=== PATIENT | male | born 1950 | race Caucasian/White ===

== ENCOUNTER 2025-05-12 14:10 | Observation (INO) | payer MEDICARE, BC ==
[~2025-05-12] VITALS: Ht 177.8 cm; Wt 132.8 kg
[2025-05-12] MEDS: KETOROLAC 30 MG/ML 1 ML VIAL IV ONE (17:39)
[2025-05-12 17:49] LABS: KETONE, URINE AUTO RFX NEGATIVE (NEGATIVE); LEUKOCYTE ESTERASE UR AUTO RFX NEGATIVE (NEGATIVE); NITRITE, URINE AUTO RFX NEGATIVE (NEGATIVE); RBC, URINE AUTO RFX 1 /HPF (0-3); SQUAM EPITHELIAL CELL UR AURFX 0 /HPF (0-6); WBC, URINE AUTO RFX 0 /HPF (0-3)
[2025-05-12 17:50] LABS: BASO # 0.0 10^3/uL (0.0-0.2); BASO % 0.5 % (0.0-1.0); EOS # 0.1 10^3/uL (0.0-0.5); EOS % 1.0 % (0.0-3.0); LYMPH # 1.9 10^3/uL (1.5-5.0); LYMPH % 22.1 % (24.0-44.0); MONO # 0.8 10^3/uL (0.0-0.8); MONO % 9.0 % (2.0-8.0); NEUTROPHILS # 5.8 10^3/uL (1.5-8.5); NEUTROPHILS % 67.1 % (36.0-66.0); PLATELET COUNT, AUTOMATED 261 10^3/uL (150-450)
[2025-05-12] MEDS: cefTRIAXone SOD 2 GM in DEXTROSE 5% (D5W) ADV/MINI-BAG 50 ML IV ONE (18:58)
[2025-05-12] MEDS: NS (Normal Saline) 0.9% 1,000 ML IV SCH (18:58)
[2025-05-12 19:31] LABS: CALCIUM LEVEL 9.0 MG/DL (8.3-10.6); CARBON DIOXIDE LEVEL 25.0 MMOL/L (20-31); CHLORIDE LEVEL 107.0 MMOL/L (98-107); CREATININE FOR GFR 0.98 MG/DL (0.70-1.30); GLOMERULAR FILTRATION RATE 80.4 (>42); POTASSIUM SERUM 4.5 MMOL/L (3.5-5.1); SODIUM LEVEL 142.0 MMOL/L (136-145)
[2025-05-12 20:08] LABS: INR 1.0
[2025-05-12] MEDS ORDERED: TAMS1CAP17 PO (20:39)
[2025-05-12] MEDS ORDERED: LISI20TA35 PO (20:39)
[2025-05-12] MEDS ORDERED: HYDR-4571 PO (20:39)
[2025-05-12] MEDS ORDERED: METH-1165 PO (20:39)
[2025-05-12] MEDS ORDERED: SIMV10TA21 PO (20:39)
[2025-05-12] MEDS ORDERED: ONDA-282 PO (20:39)
[2025-05-12] MEDS ORDERED: HOME MED LIST COMPLETE! XX SCH (20:45)
[2025-05-12] MEDS: SIMVASTATIN 10 MG TAB PO SCH (22:35)
[2025-05-12] MEDS: KETOROLAC 30 MG/ML 1 ML VIAL IV PRN (23:19)
[2025-05-13 04:03] VITALS: BP 155/84; TEMP 97.1; O2SAT 96
[2025-05-13 05:58] LABS: PLATELET COUNT, AUTOMATED 218 10^3/uL (150-450)
[2025-05-13 06:20] LABS: ALT/SGPT 29.0 U/L (7.0-40); AST/SGOT 29.0 U/L (<34); CALCIUM LEVEL 8.1 MG/DL (8.3-10.6); CARBON DIOXIDE LEVEL 27.0 MMOL/L (20-31); CHLORIDE LEVEL 109.0 MMOL/L (98-107); CREATININE FOR GFR 1.06 MG/DL (0.70-1.30); GLOMERULAR FILTRATION RATE 73.2 (>42); MAGNESIUM LEVEL 2.0 MG/DL (1.8-2.4); POTASSIUM SERUM 4.1 MMOL/L (3.5-5.1); SODIUM LEVEL 143.0 MMOL/L (136-145)
[2025-05-13] MEDS: HEPARIN SOD 5000 UNITS/ML 1 ML VIAL/SYRINGE SC SCH (06:52)
[2025-05-13 08:12] VITALS: BP 154/84; TEMP 97.9; O2SAT 98
[2025-05-13 08:16] VITALS: BP 154/84
[2025-05-13] MEDS: TAMSULOSIN 0.4 MG CAP PO SCH (08:16)
[2025-05-13] MEDS ORDERED: MIDAZOLAM INJ 2 MG/2 ML VIAL As Ordered ONE (11:43)
[2025-05-13] MEDS: ISOVUE-300 61% 100 ML VIAL As Ordered ONE (12:50)
[2025-05-13] MEDS ORDERED: HYDROMORPHONE HCL 0.5 MG/0.5 ML SYRINGE IV PRN (13:05)
[2025-05-13] MEDS ORDERED: MORPHINE 2 MG/ML 1 ML VIAL IV PRN (13:05)
[2025-05-13 13:50] VITALS: BP 122/59; TEMP 97.9; O2SAT 95
[2025-05-13] MEDS ORDERED: OXYB5TAB14 PO (13:57)
== END 2025-05-13 16:05 | disposition home or self-care (01) ==
LOC: M ED 14:10 → M ED INP 14:11 → M PCU 05-13 04:01
PROVIDERS: ADMIT Internal Medicine; ATTEND Internal Medicine
DX: N13.2 Hydronephrosis with renal and ureteral calculous obstruction (principal); I10 Essential (primary) hypertension; G47.33 Obstructive sleep apnea (adult) (pediatric); E78.5 Hyperlipidemia, unspecified; M10.9 Gout, unspecified; M54.50 Low back pain, unspecified; M54.2 Cervicalgia; Z79.899 Other long term (current) drug therapy
CPT/HCPCS: 36415; 52332; 74420; 76870; 80048; 80053; 81001; 83735; 85025; 85027; 85610; 85730; 93976; 96361; 96365; 96375; 96376; 99284; C1769; C2617; G0378; J0696; J1885; J2250; J3010; Q9967